=== PATIENT | female | born 1985 | race Two or more races ===

== ENCOUNTER 2016-05-31 19:03 | Emergency (ER) | payer OTHER ==
[~2016-05-31] VITALS: Ht 157.5 cm; Wt 83.9 kg
[2016-05-31] MEDS ORDERED: NKM (19:11)
--- NOTE | 2016-05-31 19:22 | Emergency Room Report ---
History of Present Illness General Chief Complaint: Lower Back Pain or Injury Source: Patient Present Illness HPI 30-year-old female presents emergency department complaining of right-sided low back pain that radiates down into the right hip and posterior thigh times one day. Patient rates her pain as 9 out of 10 in severity, with occasional exacerbation up on forward flexion to 10 on a 10 in severity. pt describes "tightness" of the lower back muscle with "electrical" pains with certain movements and positions. Pt states the pain shoots down into the posterior right thigh. She denies previous injury, recent spinal procedures or midline Spinal tenderness, or incontinence. 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 Patient states that she was assisting someone that was quite large and weighed approximately 300 pounds. Patient denies nausea, vomiting, fevers, chills. denies neck pain. She denies . Denies numbness tingling or loss of sensation or gross motor movements of the extremities, incontinence of bowel or bladder. Denies CP, Palpitations, LOC, AMS, dizziness, Changes in Vision, Sensation, paresthesias, or a sudden severe headache. Allergies: Coded Allergies: No Known Allergies (Unverified , 05/31/16) Patient History Past Medical History: see triage record Past Surgical History: none Pertinent Family History: none Last Menstrual Period: Currently on her period Now: No : 3 Para: 3 Immunizations: UTD Reviewed Nursing Documentation: PMH: Agreed, PSxH: Agreed Nursing Documentation-PMH Hx Hypertension: Yes Review of Systems All Other Systems: negative except mentioned in HPI Physical Exam Vital Signs Date Time Temp Pulse Resp B/P Pulse Ox O2 Delivery O2 Flow Rate FiO2 05/31/16 19:06 98.2 78 16 139/83 100 Room Air Medical Decision Making PA Attestation Dr. Davies is my supervising Physician whom patient management has been discussed with. Diagnostic Impression: Primary Impression: Lumbar strain Qualified Codes: S39.012A - Strain of muscle, fascia and tendon of lower back , initial encounter Additional Impression: Muscle spasm of back ER Course Pt. presents to the ED c/o right low back pain described as "soreness, and tightness" that on occasion radiates down into the right hip and posterior right thigh. onset after attempting to assist 300lb person transfer from wheel chair into shower today at work. Ddx considered but are not limited to Fracture, dislocation, contusion, Sprain/ Strain/Spasm Vital signs: are WNL, pt. is afebrile H&PE are most consistent with lumbar strain, with muscle spasm and intermittent sciatica type radiation of the right side. ORDERS: none required at this time. ED INTERVENTIONS: -40mg Toradol IM -350mg Soma PO DISCHARGE: At this time pt. is stable for d/c to home. Will provide printed patient care instructions, and any necessary prescriptions. Care plan and follow up instructions have been discussed with the patient prior to discharge. Last Vital Signs Date Time Temp Pulse Resp B/P Pulse Ox O2 Delivery O2 Flow Rate FiO2 05/31/16 19:06 98.2 78 16 139/83 100 Room Air Disposition: HOME, SELF-CARE Condition: Stable Scripts Ibuprofen* (MOTRIN*) 600 Mg Tablet 600 MG ORAL THREE TIMES A DAY, #30 TAB 0 Refills Prov: Dorita Chaidez 05/31/16 Cyclobenzaprine Hcl* (FLEXERIL*) 10 Mg Tablet 10 MG ORAL THREE TIMES A DAY, #20 TAB Prov: Dorita Chaidez 05/31/16 Departure Forms: Return to Work Return to Work Date: Jun 02, 2016 Work Restrictions: No Heavy Lifting Other Restrictions: light duty, no heavy lifting x 1 week. Return to Full Activity: Jun 09, 2016 Patient Instructions: Lumbosacral Strain Additional Instructions: Take medications as directed. Follow up with PCP in 3-5 days Return sooner to ED if new symptoms occur, or current symptoms become worse. Do not drink alcohol, drive, or operate heavy machinery while taking Muscle relaxer as this may cause drowsiness. Dorita Chaidez May 31, 2016 19:22
[2016-05-31] MEDS ORDERED: Ketorolac 60mg Inj IM ONE (19:45)
[2016-05-31] MEDS ORDERED: CYCLOBENZAPRINE10 MG ORAL (19:53)
[2016-05-31] MEDS ORDERED: IBUPROFEN600 MG ORAL (19:53)
[2016-05-31 20:36] VITALS: BP 121/79
[2016-05-31 20:38] VITALS: BP 121/79
== END 2016-05-31 20:38 | disposition home or self-care (01) ==
LOC: EMR 19:21
DX: S39.012A Strain of muscle, fascia and tendon of lower back, initial encounter (principal); M62.830 Muscle spasm of back; I10 Essential (primary) hypertension
CPT/HCPCS: 96372; 99284

== ENCOUNTER 2018-07-20 18:46 | Emergency (ER) | payer MEDICARE, MEDICAID ==
[~2018-07-20] VITALS: Ht 157.5 cm; Wt 61.2 kg
[~2018-07-20 18:46] MED LIST: CYCLOBENZAPRINE10 MG ORAL; IBUPROFEN600 MG ORAL; NKM
[2018-07-20 19:00] VITALS: BP 181/112
[2018-07-20] MEDS ORDERED: Metoclopramide 10mg/2ml Inj IVP ONE (19:15)
[2018-07-20] MEDS ORDERED: Acetaminophen 500mg (ES) tab ORAL ONE (19:30)
--- NOTE | 2018-07-20 19:36 | Emergency Room Report ---
History of Present Illness General Chief Complaint: Headache Source: Patient, EMS Present Illness HPI She is a 32-year-old female presented after increased headache. Patient reports having similar symptoms in the past after dialysis. Patient had multiple previous episodes of similar symptoms. She denies any previous CT imaging. Patient states she had prior history of end-stage renal disease. She was undergoing dialysis today. Patient denies any fever. She denies any neck stiffness. Allergies: Coded Allergies: No Known Allergies (Unverified , 05/31/16) Patient History Past Medical History: see triage record Last Menstrual Period: 10 days ago Now: No Reviewed Nursing Documentation: PMH: Agreed; PSxH: Agreed Nursing Documentation-PMH Past Medical History: No History, Except For Hx Hypertension: Yes Hx Dialysis: Yes Review of Systems All Other Systems: negative except mentioned in HPI Physical Exam Vital Signs Date Time Temp Pulse Resp B/P (MAP) Pulse Ox O2 Delivery O2 Flow Rate FiO2 07/20/18 18:37 99.0 100 20 181/112 98 Room Air General Appearance: alert, non-toxic, thin, Chronically Ill Neck: full range of motion, supple, thyroid normal, no meningismus Respiratory: lungs clear, normal breath sounds Cardiovascular #1: normal inspection, regular rate, rhythm Gastrointestinal: normal inspection Musculoskeletal: normal inspection Neurologic: normal inspection, alert, oriented x3, responsive, pv design and installation technician III-XII nml as tested Skin: other - edema Medical Decision Making Diagnostic Impression: Primary Impression: Headache ER Course Present for headache. Differential diagnosis include was not limited to anemia , migraine, meningitis, intracranial hemorrhage among others. Patient denies prior CT imaging. Patient was given medications for headache. Patient refused laboratory workup. Patient was advised that we would not be unable to tell if she required a transfusion without blood test but she continued to refuse. Patient was advised to follow-up with her primary care physician for recheck. Patient was noted to have some prior history of headaches associated with dialysis. The patient is advised to follow up with primary care doctor in 1-2 days. Patient is advised to return if any worsening condition or if any changes in status that are concerning. This report is dictated with [employer] passenger brakeman software which may occasionally lead to discrepancies related to use of this software. Last Vital Signs Date Time Temp Pulse Resp B/P (MAP) Pulse Ox O2 Delivery O2 Flow Rate FiO2 07/20/18 18:37 99.0 100 20 181/112 98 Room Air Status: improved Disposition: HOME, SELF-CARE Condition: Unknown David Medrano MD Jul 20, 2018 19:36
[2018-07-20] MEDS ORDERED: Norco 5mg/325mg tab ORAL ONE (20:45)
[2018-07-20 21:04] VITALS: BP 162/97
[2018-07-20 22:40] VITALS: BP 140/78
--- NOTE | 2018-07-21 09:08 | Diagnostic Imaging Report ---
Indications: Headache, dizziness Technique: Spiral acquisitions obtained through the brain. Angled axial and coronal 5 x 5 mm slices were reconstructed. Total dose length product 1326.65 mGycm. CTDI vol(s) 70.38 mGy. Dose reduction achieved using automated exposure control Comparison: None. Findings: No acute intracranial hemorrhage or edema, mass effect, nor midline shift. Normal size ventricles and extra axial CSF spaces. Normal paulino-white differentiation. Intact calvarium. There is a left maxillary sinus polyp versus mucous retention cyst, incompletely visualized. The remaining visualized sinuses are clear. The mastoids are clear. The orbits are unremarkable. Impression: Negative for acute intracranial bleed or mass effect Left maxillary sinus polyp versus mucous retention cyst This agrees with the preliminary interpretation provided overnight by Dr. Garcia The CT scanner at [facility] is accredited by the [employer] and the scans are performed using protocols designed to limit radiation exposure to as low as reasonably achievable to attain images of sufficient resolution adequate for diagnostic evaluation.
== END 2018-07-20 22:40 | disposition home or self-care (01) ==
LOC: EDBD 18:46 → EMR 19:21
DX: R51 Headache (principal); I12.0 Hypertensive chronic kidney disease with stage 5 chronic kidney disease or end stage renal disease; N18.6 End stage renal disease; Z99.2 Dependence on renal dialysis
CPT/HCPCS: 70450; 99284

== ENCOUNTER 2019-08-02 15:12 | Emergency (ER) | payer MEDICARE, MEDICAID ==
[~2019-08-02] VITALS: Ht 157.5 cm; Wt 63.5 kg
[2019-08-02 15:17] VITALS: BP 132/63
--- NOTE | 2019-08-02 15:25 | NUR ---
ED Nurse Note: patient brought into ED from home due to sudden pain on the right upper shunt area 30 minutes prior to arrival to ED. patient reports it was placed 2 weeks ago at [facility] by vascular surgeon DR Alfa Marmolejo. per EMS patient's last dialysis was yesterday. patient is alert awake x4 ambulatory, breathing unlabored and even, speaking in full sentences. patient placed on a hospital gown, on a slabber light.
[2019-08-02] MEDS ORDERED: Morphine Sulfate 4mg/ml Inj (IV USE ONLY) IVP ONE (15:45)
[2019-08-02 16:10] LABS: BASOPHILS % (AUTO) 1.3 % (0.0-2.0); EOSINOPHILS % (AUTO) 2.2 % (0.0-3.0); HEMATOCRIT 32.2 % (37.0-47.0); HEMOGLOBIN 10.8 G/DL (12.0-16.0); LYMPHOCYTES % (AUTO) 28.5 % (20.0-45.0); MEAN CORPUSCULAR VOLUME 99 FL (80-99); MONOCYTES % (AUTO) 5.4 % (1.0-10.0); NEUTROPHILS % (AUTO) 62.7 % (45.0-75.0); PLATELET COUNT 194 K/UL (150-450); RED BLOOD COUNT 3.27 M/UL (4.20-5.40); RED CELL DISTRIBUTION WIDTH 12.9 % (11.6-14.8); WHITE BLOOD COUNT 5.6 K/UL (4.8-10.8)
[2019-08-02 16:11] LABS: ALANINE AMINOTRANSFERASE 13 U/L (12-78); ALBUMIN 3.8 G/DL (3.4-5.0); ALBUMIN/GLOBULIN RATIO 0.9 (1.0-2.7); ALKALINE PHOSPHATASE 101 U/L (46-116); ANION GAP 15 mmol/L (5-15); ASPARTATE AMINO TRANSFERASE 26 U/L (15-37); BILIRUBIN,TOTAL 0.3 MG/DL (0.2-1.0); BLOOD UREA NITROGEN 64 mg/dL (7-18); CALCIUM 8.4 MG/DL (8.5-10.1); CARBON DIOXIDE 26 MMOL/L (21-32); CHLORIDE 107 MMOL/L (98-107); CREATININE 10.9 MG/DL (0.55-1.30); SODIUM 148 MMOL/L (136-145)
[2019-08-02] MEDS ORDERED: HYDROcodone/Acetamin 5/325 tab ORAL ONE (16:15)
[2019-08-02] MEDS: Sodium Polystyrene Sulfonate Enema RECTAL ONE ×2 (18:23→18:30)
[2019-08-02] MEDS ORDERED: Sodium Polystyrene Sulfonate 15gm Powder ORAL ONE ×2 (18:30)
[2019-08-02] MEDS ORDERED: CATAPRES0.1 MG ORAL (18:31)
[2019-08-02] MEDS ORDERED: AMLODIPINE BESYL5 MG ORAL (18:31)
--- NOTE | 2019-08-02 18:36 | Diagnostic Imaging Report ---
Indication: Right upper extremity pain and swelling. Technique: Duplex Doppler imaging of the veins in the upper extremity performed. FINDINGS: The jugular and subclavian veins demonstrate normal color flow and waveform signal. There is a widely patent right upper extremity arteriovenous graft. The venous end of the graft is unnamed. The axillary, cephalic and basilic vein appears normal compressibility. No evidence of thrombosis. There is no evidence of thrombosis with good compressibility, normal color flow and waveform analysis. There is edema in the arm. Some fluid noted surrounding the arteriovenous shunt. IMPRESSION: No evidence of thrombosis involving the upper extremity in question. Patent arteriovenous graft
--- NOTE | 2019-08-02 18:45 | NUR ---
ED Nurse Note: patient tolerated kayexalate as ordered without complication.
--- NOTE | 2019-08-02 18:52 | NUR ---
ER DISCHARGE NOTE: Patient is cleared to be discharged per ERMD DR LOU, pt is aox4, on room air, with stable vital signs. pt was given dc and prescription instructions, pt was able to verbalize understanding, pt id band and iv site removed without complications. pt is able to ambulate with steady gait. pt took all belongings.
[2019-08-02 18:53] VITALS: BP 128/62
--- NOTE | 2019-08-02 19:09 | Emergency Room Report ---
History of Present Illness General Chief Complaint: Pain Source: Medical Record Present Illness HPI 33-year-old female presents to ED complaining of right arm pain and swelling. Brought in by EMS from home. States that she had a AV graft placed in the right upper extremity 2 weeks ago at [facility]. States that suddenly today it got very swollen and painful. 10 out of 10, sharp, nonradiating. Denies shortness of breath. History of end-stage renal disease on dialysis. Normally goes Thursday. Denies fevers or chills. Missed Thursday dialysis and went yesterday. No other aggravating relieving factors. Denies any other associated symptoms COVID-19 risk:Travel to affect: No Allergies: Coded Allergies: No Known Allergies (Unverified , 05/31/16) Patient History Past Medical History: renal disease, dialysis Past Surgical History: other - av graft RUE 2 weeks ago Pertinent Family History: none Social History: Denies: smoking, alcohol use, drug use Last Menstrual Period: one month ago Now: No Immunizations: UTD Reviewed Nursing Documentation: PMH: Agreed; PSxH: Agreed Nursing Documentation-PMH Past Medical History: No History, Except For Hx Hypertension: Yes Hx Dialysis: Yes - ESRD Review of Systems All Other Systems: negative except mentioned in HPI Physical Exam Vital Signs Date Time Temp Pulse Resp B/P (MAP) Pulse Ox O2 Delivery O2 Flow Rate FiO2 08/02/19 15:17 99.0 86 18 132/63 99 Room Air Sp02 EP Interpretation: reviewed, normal General Appearance: no apparent distress, alert, GCS 15, non-toxic Head: normocephalic, atraumatic Eyes: bilateral eye normal inspection, bilateral eye PERRL ENT: hearing grossly normal, normal pharynx, no angioedema, normal voice Neck: full range of motion, supple/symm/no masses Respiratory: chest non-tender, lungs clear, normal breath sounds, speaking full sentences, other - permacath L upper chest Cardiovascular #1: regular rate, rhythm, no edema Cardiovascular #2: 2+ carotid (R), 2+ carotid (L), 2+ radial (R), 2+ radial (L) , 2+ dorsalis pedis (R), 2+ dorsalis pedis (L) Gastrointestinal: normal bowel sounds, non tender, soft, non-distended, no guarding, no rebound Rectal: deferred Genitourinary: normal inspection, no CVA tenderness Musculoskeletal: back normal, normal range of motion, gait/station normal, non- tender, swelling - RUE. stitches intact. no erythema/induration Neurologic: alert, motor strength/tone normal, oriented x3, sensory intact, responsive, speech normal Psychiatric: judgement/insight normal, memory normal, mood/affect normal, no suicidal/homicidal ideation Reflexes: 3+ bicep (R), 3+ bicep (L), 3+ tricep (R), 3+ tricep (L), 3+ knee (R) , 3+ knee (L) Lymphatic: no adenopathy Medical Decision Making Diagnostic Impression: Primary Impression: Swelling of upper extremity Additional Impression: ESRD (end stage renal disease) on dialysis ER Course Hospital Course 33 yo F presents with pain/swelling RUE. s/p recent AV graft surgery. Differential diagnoses include: DVT, cellulitis, contusion, abscess Clinical course Patient placed on stretcher after initial history and physical I ordered labs, EKG, pain medication and DVT ultrasound. Labs reviewed- K 6.0, BUN/Cr elevated, hemoglobin/hematocrit stable, no leukocytosis Doppler ultrasound shows no evidence of DVT. fluid around AV shunt EKG - NSR, no acute ischemic changes interpreted by me I discussed with vascular surgeon Dr. Alfa Bañuelos. Agrees this could be likely a seroma. No evidence of DVT or infection. He agrees that patient can be discharged. He will follow-up with her in his office I discussed with Dr Forbes (nephrology). Knows this patient very well. Agrees that patient can be discharged. Will give Kayexalate here and he will see in his office tomorrow for dialysis in the morning I discussed these findings with patient. She agrees with plan. Safe for discharge for close outpatient follow-up I. I feel this is a highly complex case requiring extensive working including EKG/Rhythm strip, Xray/CT/US, Blood/urine lab work, repeat exams while in ED, and administration of strong opiates/narcotics for pain control, admission to hospital or close patient follow up. Diagnosis - swelling of upper extremity, ESRD on dialysis Stable and discharged to home. Followup with PMD. Return to ED if symptoms recur or worsen Labs Test 08/02/19 15:20 08/02/19 15:59 White Blood Count 5.6 K/UL (4.8-10.8) Red Blood Count 3.27 M/UL (4.20-5.40) Hemoglobin 10.8 G/DL (12.0-16.0) Hematocrit 32.2 % (37.0-47.0) Mean Corpuscular Volume 99 FL (80-99) Mean Corpuscular Hemoglobin 33.0 PG (27.0-31.0) Mean Corpuscular Hemoglobin Concent 33.5 G/DL (32.0-36.0) Red Cell Distribution Width 12.9 % (11.6-14.8) Platelet Count 194 K/UL (150-450) Mean Platelet Volume 6.5 FL (6.5-10.1) Neutrophils (%) (Auto) 62.7 % (45.0-75.0) Lymphocytes (%) (Auto) 28.5 % (20.0-45.0) Monocytes (%) (Auto) 5.4 % (1.0-10.0) Eosinophils (%) (Auto) 2.2 % (0.0-3.0) Basophils (%) (Auto) 1.3 % (0.0-2.0) Prothrombin Time 10.2 SEC (9.30-11.50) Prothromb Time International Ratio 1.0 (0.9-1.1) Activated Partial Thromboplast Time 24 SEC (23-33) Sodium Level 148 MMOL/L (136-145) Potassium Level 6.0 MMOL/L (3.5-5.1) Chloride Level 107 MMOL/L (98-107) Carbon Dioxide Level 26 MMOL/L (21-32) Anion Gap 15 mmol/L (5-15) Blood Urea Nitrogen 64 mg/dL (7-18) Creatinine 10.9 MG/DL (0.55-1.30) Estimat Glomerular Filtration Rate 4.1 mL/min (>60) Glucose Level 94 MG/DL (74-106) Calcium Level 8.4 MG/DL (8.5-10.1) Total Bilirubin 0.3 MG/DL (0.2-1.0) Aspartate Amino Transf (AST/SGOT) 26 U/L (15-37) Alanine Aminotransferase (ALT/SGPT) 13 U/L (12-78) Alkaline Phosphatase 101 U/L (46-116) Total Protein 7.8 G/DL (6.4-8.2) Albumin 3.8 G/DL (3.4-5.0) Globulin 4.0 g/dL Albumin/Globulin Ratio 0.9 (1.0-2.7) Human Chorionic Gonadotropin, Qual Negative (NEGATIVE) Lactic Acid Level 0.60 mmol/L (0.4-2.0) EKG Diagnostic Results Rate: normal Rhythm: NSR ST Segments: no acute changes ASA given to the pt in ED: No Rhythm Strip Diag. Results EP Interpretation: yes Rhythm: NSR, no PVC's, no ectopy CT/MRI/US Diagnostic Results CT/MRI/US Diagnostic Results : Imaging Test Ordered: Venous Duplex Impression US VENOUS RIGHT UPPER EXTREMITY: No DVT in the right upper extremity. Patent AV shunt in the right upper arm. There is some edema in the right upper arm. There is some fluid in the upper arm surrounding the AV shunt. Last Vital Signs Date Time Temp Pulse Resp B/P (MAP) Pulse Ox O2 Delivery O2 Flow Rate FiO2 08/02/19 18:53 99.0 72 18 128/62 99 Room Air Status: improved Disposition: HOME, SELF-CARE Condition: Stable Referrals: NOT CHOSEN IPA/,REFERRING (PCP) Patient Instructions: Dialysis Vascular Access Malfunction Additional Instructions: followup with Dr Forbes's office tomorrow at 8am for dialysis. followup with your vascular surgeon next week regarding the swelling. Charbel Edwards MD Aug 02, 2019 19:08
== END 2019-08-02 18:52 | disposition home or self-care (01) ==
LOC: EDUNIT# 15:12 → EDBD 15:12 → EMR 16:10 → CANBEDREQ 18:24 → EMR 18:52
DX: R22.31 Localized swelling, mass and lump, right upper limb (principal); I12.0 Hypertensive chronic kidney disease with stage 5 chronic kidney disease or end stage renal disease; N18.6 End stage renal disease; Z99.2 Dependence on renal dialysis
CPT/HCPCS: 80053; 83605; 84703; 85025; 85610; 85730; 87040; 93005; 93931; 99284

== ENCOUNTER 2019-08-05 22:26 | Inpatient (IN) | payer MEDICARE, MEDICAID ==
[~2019-08-05] VITALS: Ht 157.5 cm; Wt 66.7 kg
[~2019-08-05 22:26] MED LIST changes: +AMLODIPINE BESYL5 MG ORAL; +CATAPRES0.1 MG ORAL
[2019-08-05] MEDS ORDERED: HYDROmorphone 1mg/ml Carpuject IVP ONE ×2 (22:30→23:00)
[2019-08-05 22:42] LABS: BASOPHILS % (AUTO) 1.4 % (0.0-2.0); EOSINOPHILS % (AUTO) 1.8 % (0.0-3.0); HEMOGLOBIN 8.5 G/DL (12.0-16.0); LYMPHOCYTES % (AUTO) 41.3 % (20.0-45.0); MEAN CORPUSCULAR VOLUME 101 FL (80-99); NEUTROPHILS % (AUTO) 49.5 % (45.0-75.0); PLATELET COUNT 273 K/UL (150-450); RED BLOOD COUNT 2.57 M/UL (4.20-5.40); RED CELL DISTRIBUTION WIDTH 13.8 % (11.6-14.8); WHITE BLOOD COUNT 8.4 K/UL (4.8-10.8)
--- NOTE | 2019-08-05 22:45 | NUR ---
ED Nurse Note: Recieved pt BIBA from home, here with c/o right arm pain and swelling, pt has newly placed av shunt, placed 1 week ago, seen here 4 days ago for same reason, f/u with vascular surgeon and was told no problems, pt had dialysis today and after returning home had increased pain with swelling, pt arm is severely swollen, mild bleeding, has pressure dressing in place, removed and no active bleeding noted, sutures are in place, clean and intact, pt is screaming and crying due to pain, pain at 10/120, guarding site also, pt skin color is verypale and cool to touch, pt states she passed out in dialysis, denies cp, no sob or labored breathing, pt just screaming very loud due to pain, pt immediately gowned and placed on cardiac monitoring, b/p is low, MD is aware and at bedside also, will continue to closely montior, pt arm elevated on pilows also.
--- NOTE | 2019-08-05 22:49 | Emergency Room Report ---
History of Present Illness General Chief Complaint: General Complaint Source: Patient, Medical Record, EMS Present Illness HPI Disclaimer: Please note that this report is being documented using DRAGON technology. This can lead to erroneous entry secondary to incorrect interpretation by the dictating instrument. HPI: 33-year-old female with history of ESRD on hemodialysis TRS presents for evaluation of AV fistula bleed and arm pain and swelling. Patient states she had a new AV fistula placed in the right upper extremity at [facility] several weeks ago. She was seen in the emergency department last week complaining of pain and swelling. Ultrasound did not show any evidence of DVT, abscess or other significant pathology aside from a seroma. She has been going to extra hemodialysis session due to recent volume overload. She went to dialysis today and yesterday. States that she was resting at home and had sudden pain and swelling in the right upper extremity. Pain is 10/10. Nonradiating. Denies overlying skin breakdown. States there was a short episode of oozing that was controlled by pressure. No current bleeding noted. Can move the upper extremity though limited due to severe pain. Denies pain in the hand or wrist or elbow. No trauma reported. PMH: ESRD PSH: Multiple fistulas and replacements Allergies: Denies Social Hx: Denies drug or alcohol abuse COVID-19 risk:Contact w/high r: No COVID-19 risk:Travel to affect: No Has patient experienced vallejo: No Allergies: Coded Allergies: No Known Allergies (Unverified , 05/31/16) Patient History Last Menstrual Period: NA Now: No Nursing Documentation-PMH Past Medical History: No History, Except For Hx Hypertension: Yes Hx Dialysis: Yes - ESRD Review of Systems All Other Systems: negative except mentioned in HPI Physical Exam Vital Signs Date Time Temp Pulse Resp B/P (MAP) Pulse Ox O2 Delivery O2 Flow Rate FiO2 08/05/19 22:25 98.4 114 18 90/65 (73) 98 Non-Rebreather 15.0 General: Awake and alert, uncomfortable, screaming in pain HEENT: NC/AT. EOMI. Cardiovascular: Tachycardic S1 and S2 normal. No murmur appreciated. 2+ radial pulses. Brisk capillary refill in all digits on the right upper extremity. Resp: Normal work of breathing. No cough, wheezing or crackles appreciated Skin: Significant ecchymosis over the surgical scar on the right upper extremity. No dehiscence. Appears to be healing well. There is an area of scabbing from recent bleed that is currently hemostatic. No masses appreciated. MSK: Normal tone and bulk. Moving all extremities. No obvious deformity. Neuro: Awake and alert. Mentating appropriately. Medical Decision Making Diagnostic Impression: Primary Impression: ESRD (end stage renal disease) on dialysis Additional Impressions: Anemia Syncope ER Course 33-year female presents for evaluation of minor fistula bleed complaining of right arm pain and swelling. Differential includes was not limited to worsening seroma, abscess, thrombosis, cellulitis. Will obtain labs to evaluate potassium and blood counts. Send type and screen for possible transfusion though it does not sound like the patient lost a significant amount of blood to warrant a transfusion. She is pale and appears fatigued. Will obtain imaging of the right upper extremity and discuss with her vascular surgeon. Laboratory Tests Test 08/05/19 22:30 White Blood Count 8.4 K/UL (4.8-10.8) Red Blood Count 2.57 M/UL (4.20-5.40) L Hemoglobin 8.5 G/DL (12.0-16.0) L Hematocrit 26.0 % (37.0-47.0) L Mean Corpuscular Volume 101 FL (80-99) H Mean Corpuscular Hemoglobin 32.9 PG (27.0-31.0) H Mean Corpuscular Hemoglobin Concent 32.5 G/DL (32.0-36.0) Red Cell Distribution Width 13.8 % (11.6-14.8) Platelet Count 273 K/UL (150-450) Mean Platelet Volume 6.7 FL (6.5-10.1) Neutrophils (%) (Auto) 49.5 % (45.0-75.0) Lymphocytes (%) (Auto) 41.3 % (20.0-45.0) Monocytes (%) (Auto) 6.0 % (1.0-10.0) Eosinophils (%) (Auto) 1.8 % (0.0-3.0) Basophils (%) (Auto) 1.4 % (0.0-2.0) Prothrombin Time 10.2 SEC (9.30-11.50) Prothrombin Time INR 1.0 (0.9-1.1) Activated Partial Thromboplast Time 21 SEC (23-33) L Sodium Level 144 MMOL/L (136-145) Potassium Level 3.0 MMOL/L (3.5-5.1) L Chloride Level 101 MMOL/L (98-107) Carbon Dioxide Level 27 MMOL/L (21-32) Anion Gap 16 mmol/L (5-15) H Blood Urea Nitrogen 14 mg/dL (7-18) Creatinine 3.8 MG/DL (0.55-1.30) H Estimated Glomerular Filtration Rate 13.7 mL/min (>60) Glucose Level 187 MG/DL (74-106) H Calcium Level 9.0 MG/DL (8.5-10.1) EKG Diagnostic Results EKG Time: 01:17 Rate: normal Rhythm: NSR ST Segments: no acute changes Other Impression Sinus rhythm, normal axis, normal intervals, flattened T waves. Nonspecific T wave inversions. Rhythm Strip Diag. Results Rhythm Strip Time: 01:17 EP Interpretation: yes Rate: 101 Rhythm: NSR, no PVC's, no ectopy CT/MRI/US Diagnostic Results CT/MRI/US Diagnostic Results : Impression Final Report EXAM: CT Right Upper Extremity With Intravenous Contrast CLINICAL HISTORY: PAIN TECHNIQUE: Axial computed tomography images of the right upper extremity with intravenous contrast. CTDI is 90.90 mGy and DLP is 146.8 mGy-cm. One or more of the following dose reduction techniques were used: automated exposure control, adjustment of the mA and/or kV according to patient size, use of iterative reconstruction technique. 3D and MIP reconstructed images were created and reviewed. COMPARISON: US RUE 08/02/19 FINDINGS: Bones/joints: No acute abnormality. Soft tissues: Subcutaneous edema is present in the right axilla. High density fluid surrounding the inferior aspect of the graft is concerning for a hematoma and measures approximately 5.6 cm. A 3 mm focus of irregular nodular enhancement adjacent to this collection may represent active hemorrhage (series 10, image 123). Vasculature: Patent right upper extremity AV graft. Nonocclusive thrombus is present in the right axillary vein near the anastomosis. IMPRESSION: 1. Patent right upper extremity AV graft. 5.6 cm hematoma surrounding the distal graft with suspected active hemorrhage, as above. 2. Nonocclusive thrombus in the right axillary vein near the anastomosis. Radiologist: Nina Strange MD Electronically Signed: 08/06/19 00:35 Study ready at 00:15 and initial results transmitted at 00:35 Reevaluation Time: 01:08 Last Vital Signs Date Time Temp Pulse Resp B/P (MAP) Pulse Ox O2 Delivery O2 Flow Rate FiO2 08/05/19 22:25 98.4 114 18 90/65 (73) 98 Non-Rebreather 15.0 Reevaluation Impression Labs show drop in hemoglobin from 10.8-8.5 from her last visit on 08/01. CT report shows a patent right upper extremity AV graft to though there is a 5.6 cm hematoma surrounding the distal graft. Radiology interpretation said there was a suspicion for active hemorrhage however the images were reviewed by the patient's vascular surgeon, Dr. Bañuelos, from [facility]. He does not believe it is actively extravasating and recommending compression bandage. He states he can see her in the office early next week. There is also a nonocclusive thrombus in the right axillary vein near the anastomosis. He does not believe this is an acute issue. He states there is no emergent need for vascular surgery at this point. Patient states that she still feels weak though pain is improved. Blood pressures improved after receiving a small IV fluid bolus. She now adds that she syncopized today while receiving hemodialysis. Given her drop in hemoglobin and her syncope today will admit for symptomatic anemia. Will order blood transfusion. Disposition: ADMITTED INPATIENT Condition: Serious Referrals: NOT CHOSEN JOSIAS/,REFERRING (PCP) Siddhartha De Los Santos MD Aug 05, 2019 22:49
[2019-08-05 23:00] VITALS: BP 99/58
[2019-08-05 23:01] LABS: ANION GAP 16 mmol/L (5-15); BLOOD UREA NITROGEN 14 mg/dL (7-18); CARBON DIOXIDE 27 MMOL/L (21-32); CHLORIDE 101 MMOL/L (98-107); CREATININE 3.8 MG/DL (0.55-1.30); SODIUM 144 MMOL/L (136-145)
[2019-08-06] VITALS (7 sets, daily range): BP systolic 125–140; BP diastolic 64–83
--- NOTE | 2019-08-06 | NUR ---
ED Nurse Note: Pt continues to rest in bed, pain relieved after second dose of pain meds, at bedside, on cardiac monitoring, b/p wnl now, no cp, no sob, pt assisted with re-positioning and arm elevated on pillow, will continue to closely monitor while waiting for results of CTA.
--- NOTE | 2019-08-06 00:36 | Diagnostic Imaging Report ---
EXAM: CT Right Upper Extremity With Intravenous Contrast CLINICAL HISTORY: PAIN TECHNIQUE: Axial computed tomography images of the right upper extremity with intravenous contrast. CTDI is 90.90 mGy and DLP is 146.8 mGy-cm. One or more of the following dose reduction techniques were used: automated exposure control, adjustment of the mA and/or kV according to patient size, use of iterative reconstruction technique. 3D and MIP reconstructed images were created and reviewed. COMPARISON: US RUE 08/02/19 FINDINGS: Bones/joints: No acute abnormality. Soft tissues: Subcutaneous edema is present in the right axilla. High density fluid surrounding the inferior aspect of the graft is concerning for a hematoma and measures approximately 5.6 cm. A 3 mm focus of irregular nodular enhancement adjacent to this collection may represent active hemorrhage (series 10, image 123). Vasculature: Patent right upper extremity AV graft. Nonocclusive thrombus is present in the right axillary vein near the anastomosis. IMPRESSION: 1. Patent right upper extremity AV graft. 5.6 cm hematoma surrounding the distal graft with suspected active hemorrhage, as above. 2. Nonocclusive thrombus in the right axillary vein near the anastomosis. <MYCVCSECTION> Communications: 08/06/19 00:45 Verify Receipt Verified receipt with VALORIE Poe, report given to Dr De Los Santos on 08/05 00:44 (-07:00)
[2019-08-06] MEDS ORDERED: Morphine Sulfate 4mg/ml Inj (IV USE ONLY) IVP PRN (01:30)
[2019-08-06] MEDS ORDERED: Morphine Sulfate 2mg/ml Inj(IV/IM USE ONLY) IVP PRN (01:30)
[2019-08-06] MEDS ORDERED: HYDROmorphone 1mg/ml Carpuject SUBQ PRN (01:30)
[2019-08-06] MEDS ORDERED: HYDROmorphone 1mg/ml Carpuject IVP ONE (01:45)
--- NOTE | 2019-08-06 02:00 | NUR ---
ED Nurse Note: Pt continues to rest in bed, sleeping but when awakened for anything pt immediately starts asking for pain meds, pt repositioned with pillows, appears sedated, eyes red and low, but constantly asking for morphine, v/s stable, IV site patent, pt wants to stay in hospital, states does not feel comfortable going home, pt is to have blood transfusion, consent signed, belonging list completed, no cp, no sob, will continue to closely monitor and prepare for admission, clean drydressing applied to right arm with faheem bandage, no active bleeding noted at this time, no increase in swelling but pt thinks so. will continue to monitor and send to floor bed when available.
--- NOTE | 2019-08-06 03:05 | NUR ---
ED Nurse Note: Pt in bed awake and alert, sleeping intermittently, pt constantly asking for pain meds, pt appears to be sleeping and comfortable, when awakened pt begins to scream very loudly, yelling for pain meds, MD aware, pt medicated with dilaudid, meds effective but pt states not long enough time, pt also c/o swelling increasing and states its getting bigger, pt is very anxious and constantly screaming "i dont want to ", many attempts made to console pt with meds and comfort measures, repositioning with pillow support, will continue to closely monitor, pt has been discharged by but her and dont want to leave stating she needs more pain meds, pt to be admitted for pain control, will continue care while waiting for bed and blood for transfusion.
[2019-08-06] MEDS ORDERED: COREG12.5 MG ORAL (03:45)
[2019-08-06] MEDS ORDERED: RENA-VITE RX T1 EAC1 PO (03:45)
--- NOTE | 2019-08-06 04:15 | NUR ---
ED Nurse Note: Pt started with blood transfusion of PRBC, consent form signed, pt on cardiac monitoring, pt continues to c/o pain, yelling and crying, pt is being medicated often with dilaudid for pain, pt stating we need to give her 2mg doses all at the same time like Dev, is aware of pt request, sat with pt first 15 minutes of start of transfusion, no s/s of adverse reaction noted, tolerating well, via pump, IV site patent, report called to floor nurse, pt being taken tounit via gurney with ACLS protocols, with RN bob -Tech.
--- NOTE | 2019-08-06 05:05 | NUR ---
I received report from Judith Grossman RN. Patient arrived to me from ED to 209-2. Patient is receiving first unit of blood at this time. Patient states having pain, vital signs stable. I have paged Dr Escalera for admitting orders. Awaiting callback at this time.
--- NOTE | 2019-08-06 07:17 | NUR ---
Blood bank just called me that the second unit of blood is ready. to endorse to oncoming nurse.
--- NOTE | 2019-08-06 07:17 | NUR ---
Called Dr Escalera. Awaiting callback at this time.
--- NOTE | 2019-08-06 07:51 | NUR ---
Gave report to Jennifer Garcia RN. Endorsed that Dr Escalera will be calling and blood is ready in blood bank. Endorsed plan of care.
--- NOTE | 2019-08-06 07:52 | NUR ---
NURSE NOTES: Received report from TOMASA Whitfield. Patient is on bed, awake and oriented x 4. No acute signs and symptoms of distress noted at this time. Patient is on room air with no any signs of respiratory distress. Patient is on renal diet-instructed. She has an IV site on left AC G-20, asymptomatic and patent saline lock. Skin is intact. Safety measures in place, bed in lowest position. Bed alarm on, side rails up x 2, call light and bedside table within reach. Instructed to call for assistance.
--- NOTE | 2019-08-06 08:30 | NUR ---
NURSE NOTES: Called Dr. Chandra, got the order to start the 2ng unit PRBC. Explained to the patient about the transfusion, hung the 2nd unit PRBC @ 0830H, monitor for any untoward symptoms, vitals were stable, no complaints was made. Will continue to monitor.
[2019-08-06] MEDS: Morphine Sulfate 2mg/ml Inj(IV/IM USE ONLY) IVP PRN ×3 (09:24→21:48)
--- NOTE | 2019-08-06 10:33 | NUR ---
NURSE NOTES: Received call back from Dr. Bañuelos (Vascular surgeon) he spoke with Dr. Escalera. Per vascular surgeon Ct right arm result has been the same and surgeon aware of it and no intervention needed. Possible discharge in am. will follow
[2019-08-06] MEDS: Vitamin B Complex Tab ORAL SCH (11:05)
--- NOTE | 2019-08-06 11:15 | Consultation ---
DATE OF CONSULTATION: 08/06/2019 INTERNAL MEDICINE CONSULTATION/HISTORY AND PHYSICAL CONSULTING PHYSICIAN: Duncan Ryan M.D. HISTORY OF PRESENT ILLNESS: This is a 33-year-old female with history of ESRD, on dialysis. She had been to the hospital with AV fistula being from the right upper extremity. This is a new fistula that was placed several weeks ago at [facility]. She presented with oozing from the fistula site. She was seen and admitted to the hospital. Vascular Surgery has been consulted. PAST MEDICAL HISTORY: Notable for hypertension, ESRD. PAST SURGICAL HISTORY: Left upper fistula as well as right upper fistula. ALLERGIES: None. FAMILY HISTORY: None. REVIEW OF SYSTEMS: Denies any headaches, hematemesis, melena, hematemesis. PHYSICAL EXAMINATION: GENERAL: Reveals a young female. VITAL SIGNS: Blood pressure 130/90, heart rate 94, respirations , she is afebrile. HEENT: Unremarkable. LUNGS: Clear breath sounds bilaterally with normal heart sounds. ABDOMEN: Soft. EXTREMITIES: Right upper extremity has a pressure dressing. IMAGING STUDIES: Unremarkable. CT of the upper extremity shows right upper extremity AV graft with a 5 cm hematoma with surrounding hemorrhage. LABORATORY DATA: Lab testing shows hemoglobin 8.5. Chemistry is normal except for creatinine 3.8. Coags are negative. IMPRESSION: 1. Bleeding AV fistula. 2. Hypertension. 3. ESRD, on dialysis. DISCUSSION: Admit to the hospital. Vascular Surgery had been consulted. Nephrology is consulted. 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 Duncan Ryan M.D. DR: HAILEY JOB#: [id number] CC:
--- NOTE | 2019-08-06 11:29 | Consultation ---
DATE OF CONSULTATION: 08/06/2019 CONSULTING PHYSICIAN: Harjeet Escalera M.D. REFERRING PHYSICIAN: Rowdy Wall D.O. REASON FOR CONSULTATION: 1. Anemia. 2. End-stage renal disease. 3. Bleeding from AV fistula. HISTORY OF PRESENT ILLNESS: The patient is a 33-year-old female, who underwent hemodialysis yesterday. She states during her hemodialysis session, she did not feel well. Overnight, she felt her arm swelling in her AV fistula area. Then, presented to emergency room. She had her AV fistula placed at [facility] several weeks ago. Pain is 10/10 in her arm. The hand is a little slightly ____ per the patient. REVIEW OF SYSTEMS: NEUROLOGIC: The patient denies headache, change in vision, syncope, or presyncopal episodes. CARDIOVASCULAR: No current chest pain, palpitations, angina. PULMONARY: No difficulty breathing, productive cough, or sputum. GASTROINTESTINAL/GENITOURINARY: No changes in bowel habits. No nausea and vomiting. ENDOCRINOLOGY: No night sweats, fevers, or chills. MUSCULOSKELETAL: The patient is complaining of right upper extremity arm pain. PHYSICAL EXAMINATION: VITAL SIGNS: Blood pressure 134/95, respiratory rate 17, pulse 92, temperature 98.6. GENERAL: The patient is awake, alert, not in distress. HEENT: Extraocular muscles intact. No lymphadenopathy noted. CARDIOVASCULAR: S1, S2. No rubs or gallops. PULMONARY: Clear to auscultation bilaterally. No rales, rhonchi, or wheezes. ABDOMEN: Nondistended, nontender. EXTREMITIES: No edema with a right upper extremity noted Cheko bandage. LABORATORY DATA: Labs dated 08/05/2019, hemoglobin 8.5, white cell count 8.4, and platelet count 273,000. Sodium 144, potassium 3, BUN 14, creatinine 3.8. ASSESSMENT AND PLAN: 1. End-stage renal disease, on hemodialysis. The patient's electrolytes are currently stable and she did undergo hemodialysis yesterday. At this time, we will hold off hemodialysis until Thursday. The patient does have a tunneled hemodialysis catheter if need be. 2. Right upper extremity AV fistula graft bleed, noted to have a 5.6 cm hematoma surrounding the active hemorrhage. The patient has an Cheko bandage for compression. Dr. Dr. Alfa Serra, Vascular Surgery has been consulted by emergency room for further evaluation and management. 3. Hypertension. Adjust medications as deemed appropriate. 4. GI prophylaxis with Pepcid. 5. DVT prophylaxis with SCDs. Harjeet Escalera MD DR: CHACHO JOB#: [id number] CC:
--- NOTE | 2019-08-06 12:05 | NUR ---
NURSE NOTES: 2nd unit PRBC transfusion was done, no adverse reaction was noted. Vitals were stable, Will continue to monitor.
--- NOTE | 2019-08-06 19:21 | NUR ---
HAND-OFF: Report given to Sadia KELLY RN. Patient is on bed, in stable condition, plan of care endorsed.
--- NOTE | 2019-08-06 21:42 | NUR ---
Patient is running a fever of 100.2. I notified Dr Escalera. He ordered for Tylenol (see orders for details) and blood culture x1.
--- NOTE | 2019-08-06 23:40 | NUR ---
I have notified lab of the blood culture. They told me someone would be coming to draw it.
--- NOTE | 2019-08-06 23:41 | NUR ---
Tylenol was effective. Patient is now afebrile with a temp of 98.1.
[2019-08-07] VITALS: BP 108/60
[2019-08-07 04:00] VITALS: BP 139/75
[2019-08-07 07:11] LABS: BASOPHILS % (AUTO) 0.8 % (0.0-2.0); EOSINOPHILS % (AUTO) 1.7 % (0.0-3.0); HEMATOCRIT 25.6 % (37.0-47.0); HEMOGLOBIN 8.8 G/DL (12.0-16.0); LYMPHOCYTES % (AUTO) 15.9 % (20.0-45.0); MEAN CORPUSCULAR VOLUME 91 FL (80-99); MONOCYTES % (AUTO) 9.3 % (1.0-10.0); NEUTROPHILS % (AUTO) 72.3 % (45.0-75.0); PLATELET COUNT 217 K/UL (150-450); RED BLOOD COUNT 2.81 M/UL (4.20-5.40); RED CELL DISTRIBUTION WIDTH 15.6 % (11.6-14.8); WHITE BLOOD COUNT 10.7 K/UL (4.8-10.8)
--- NOTE | 2019-08-07 07:19 | NUR ---
NURSE NOTES: Received report from TOMASA Avila. Patient is on bed, awake and oriented x 4. Patient is on renal diet, instructed. On room air with no respiratory distress noted at this time. Patient has left chest perm. cath, left fistula that is not working, AV fistula on right arm with dressing on that is dry and intact. Patient has IV site on left forearm G-20 saline lock that is asymptomatic and intact. Safety measures are in placed. Call light and bed side table within reach, bed in lowest and locked position, side rails up x 2. Encouraged to call for any assistance.
[2019-08-07 08:00] VITALS: BP 142/85
[2019-08-07 08:11] LABS: ANION GAP 15 mmol/L (5-15); BLOOD UREA NITROGEN 33 mg/dL (7-18); CALCIUM 8.7 MG/DL (8.5-10.1); CARBON DIOXIDE 24 MMOL/L (21-32); CHLORIDE 100 MMOL/L (98-107); CREATININE 8.1 MG/DL (0.55-1.30); POTASSIUM 4.5 MMOL/L (3.5-5.1); SODIUM 139 MMOL/L (136-145)
[2019-08-07] MEDS: Vitamin B Complex Tab ORAL SCH (08:39)
--- NOTE | 2019-08-07 10:15 | History and Physical Report ---
DATE OF ADMISSION: 08/06/2019 DATE AND TIME SEEN: 08/07/2019, approximate time is 9 a.m. CONSULTANTS: Harjeet Escalera M.D. CHIEF COMPLAINT: Headache, swelling upper extremity, syncope, anemia, ESRD, right arm pain. BRIEF HISTORY: This is a 33-year-old female, who lives at home, recently had a graft on the right arm for her dialysis. She has excruciating pain and possible syncopal yesterday and came to [facility], diagnosed with the above, admitted to telemetry for further care. Currently, sitting on bed. Slightly anxious, no complaint. REVIEW OF SYSTEMS: Slight chest pain. Slight short of breath. No nausea, vomiting, or diarrhea. PAST MEDICAL HISTORY: Includes ESRD, hypertension, anemia. PAST SURGICAL HISTORY: Graft on the right arm, x3. MEDICATIONS: Include Pepcid, Tylenol, Catapres, Zofran, Norvasc, morphine. ALLERGIES: Denies. SOCIAL HISTORY: No smoking. No alcohol. No intravenous drug abuse. FAMILY HISTORY: Noncontributory. PHYSICAL EXAMINATION: GENERAL: Slightly anxious, sitting on bed, oriented x3, no acute distress. VITAL SIGNS: Temperature is 98 degrees, pulse 89, respirations 18, blood pressure 142/85. CARDIOVASCULAR: No murmurs. LUNGS: Distant and clear. ABDOMEN: Bowel sounds positive. Nontender and nondistended. EXTREMITIES: Show no cyanosis, clubbing, or edema. Graft clean and dry. NEUROLOGIC: The patient moves all extremities, slightly weak. LABORATORY AND DIAGNOSTIC DATA: Labs at this time show hemoglobin and hematocrit 8.8/25, otherwise CBC is normal. BMP show BUN and creatinine 33/8.1, otherwise BMP is normal. INR is 1.0, PTT 21. ASSESSMENT: 1. Possible syncopal. 2. Right arm pain. 3. Anemia. 4. ESRD. 5. Hypertension. PLAN: 1. Blood pressure and pain control. 2. Dietary followup. 3. Nephrology followup. 4. Dialysis p.r.n. 5. CBC and BMP in the morning. Rowdy Wall D.O. DR: ISIDRO JOB#: [id number] CC:
--- NOTE | 2019-08-07 10:41 | Pulmonology Progress Note ---
Assessment/Plan Assessment/Plan IMPRESSION: 1. Bleeding AV fistula. 2. Hypertension. 3. ESRD, on dialysis. DISCUSSION: Admit to the hospital. Vascular Surgery had been consulted. Nephrology is consulted. I will follow as reconciling clerk. Duncan Ryan M.D. Subjective Interval Events: None new Constitutional: Reports: no symptoms HEENT: Repors: no symptoms Respiratory: Reports: no symptoms Cardiovascular: Reports: no symptoms Gastrointestinal/Abdominal: Reports: no symptoms Allergies: Coded Allergies: No Known Allergies (Unverified , 05/31/16) Objective Last 24 Hour Vital Signs Date Time Temp Pulse Resp B/P (MAP) Pulse Ox O2 Delivery O2 Flow Rate FiO2 08/07/19 09:00 Room Air 08/07/19 08:46 89 142/85 08/07/19 08:00 98.8 90 18 142/85 (104) 100 08/07/19 08:00 83 08/07/19 04:00 98.4 97 18 139/75 (96) 99 08/07/19 04:00 100 08/07/19 00:00 98.4 97 18 108/60 (76) 99 08/07/19 00:00 90 08/06/19 23:19 98.1 08/06/19 22:18 98.1 08/06/19 21:48 131/83 08/06/19 21:00 Room Air 08/06/19 20:00 100.2 97 18 134/75 (94) 99 08/06/19 17:51 89 131/83 08/06/19 16:00 87 08/06/19 16:00 97.8 89 20 131/83 (99) 100 08/06/19 12:00 103 08/06/19 12:00 96.5 89 20 125/64 (84) 98 Intake and Output 08/06/19 08/07/19 19:00 07:00 Output Total 550 ml Balance -550 ml Output Urine Total 550 ml General Appearance: no acute distress HEENT: normocephalic Respiratory/Chest: chest wall non-tender Cardiovascular: normal peripheral pulses Abdomen: normal bowel sounds Microbiology Date/Time Source Procedure Growth Status 08/06/19 01:30 Rectum Received Laboratory Tests 08/07/19 06:10: White Blood Count 10.7, Red Blood Count 2.81L, Hemoglobin 8.8L, Hematocrit 25.6L , Mean Corpuscular Volume 91#, Mean Corpuscular Hemoglobin 31.5H, Mean Corpuscular Hemoglobin Concent 34.6, Red Cell Distribution Width 15.6H, Platelet Count 217, Mean Platelet Volume 5.3L, Neutrophils (%) (Auto) 72.3, Lymphocytes (%) (Auto) 15.9L, Monocytes (%) (Auto) 9.3, Eosinophils (%) (Auto) 1.7, Basophils (%) (Auto) 0.8, Sodium Level 139, Potassium Level 4.5, Chloride Level 100, Carbon Dioxide Level 24, Anion Gap 15, Blood Urea Nitrogen 33H, Creatinine 8.1#H, Estimat Glomerular Filtration Rate 5.7, Glucose Level 83#, Calcium Level 8.7 Current Medications Medications (Trade) Dose Ordered Sig/Parker Route PRN Reason Start Time Stop Time Status Last Admin Dose Admin Acetaminophen (Tylenol) 650 mg Q6H PRN ORAL Mild Pain/Temp > 100.5 08/06/19 21:45 09/05/19 21:44 08/06/19 21:53 Amlodipine Besylate (Norvasc) 5 mg BID ORAL 08/06/19 09:00 09/05/19 08:59 08/07/19 08:46 Clonidine HCl (Catapres Tab) 0.1 mg QHS ORAL 08/06/19 21:00 11/04/19 20:59 08/06/19 21:48 Dextrose (Dextrose 50%) 25 ml Q30M PRN IV Hypoglycemia 08/06/19 10:15 11/04/19 10:14 Dextrose (Dextrose 50%) 50 ml Q30M PRN IV Hypoglycemia 08/06/19 10:15 11/04/19 10:14 Famotidine (Pepcid) 40 mg DAILY ORAL 08/07/19 09:00 11/05/19 08:59 08/07/19 08:37 Morphine Sulfate (Morphine Sulfate) 1 mg Q3H PRN IVP Severe Pain (Pain Scale 7-10) 08/06/19 08:00 08/13/19 07:59 08/06/19 21:48 Ondansetron HCl (Zofran) 4 mg Q6H PRN IVP Nausea & Vomiting 08/06/19 10:15 09/05/19 10:14 Vitamin B Complex (Vitamin B Complex) 1 tab DAILY ORAL 08/06/19 10:00 11/04/19 09:59 08/07/19 08:39 Duncan Ryan MD Aug 07, 2019 10:41
--- NOTE | 2019-08-07 10:50 | Nephrology Progress Note ---
Assessment/Plan Assessment/Plan: A/P 1. ESRD on hemodialysis. Use HD catheter tomorrow - HD 2 hrs tomorrow then DC and patient can have HD TTS as out patient 2. Right upper extremity AV fistula. Noted to have a 5.6 cm hematoma surrounding the graft/ hemorrhage. The patient has an Cheko bandage for compression. Spoke with Dr. Alfa Serra, Vascular Surgery who placed AV graft. He says not new. Says he informed ER doc OK for DC from ER will remove CHEKO bandage today , monitor and DC in am post HD 3. Hypertension. Adjust medications as deemed appropriate. 4. Febrile- likely from blood transfusion. Monitor for now DC home tomorrow post HD Subjective Date patient seen: Aug 07, 2019 Time patient seen: 10:29 ROS Limited/Unobtainable: No Allergies: Coded Allergies: No Known Allergies (Unverified , 05/31/16) Subjective Patient feels much better Objective Last 24 Hour Vital Signs Date Time Temp Pulse Resp B/P (MAP) Pulse Ox O2 Delivery O2 Flow Rate FiO2 08/07/19 09:00 Room Air 08/07/19 08:46 89 142/85 08/07/19 08:00 98.8 90 18 142/85 (104) 100 08/07/19 08:00 83 08/07/19 04:00 98.4 97 18 139/75 (96) 99 08/07/19 04:00 100 08/07/19 00:00 98.4 97 18 108/60 (76) 99 08/07/19 00:00 90 08/06/19 23:19 98.1 08/06/19 22:18 98.1 08/06/19 21:48 131/83 08/06/19 21:00 Room Air 08/06/19 20:00 100.2 97 18 134/75 (94) 99 08/06/19 17:51 89 131/83 08/06/19 16:00 87 08/06/19 16:00 97.8 89 20 131/83 (99) 100 08/06/19 12:00 103 08/06/19 12:00 96.5 89 20 125/64 (84) 98 Intake and Output 08/06/19 08/07/19 19:00 07:00 Output Total 550 ml Balance -550 ml Output Urine Total 550 ml Laboratory Tests 08/07/19 06:10: White Blood Count 10.7, Red Blood Count 2.81L, Hemoglobin 8.8L, Hematocrit 25.6L , Mean Corpuscular Volume 91#, Mean Corpuscular Hemoglobin 31.5H, Mean Corpuscular Hemoglobin Concent 34.6, Red Cell Distribution Width 15.6H, Platelet Count 217, Mean Platelet Volume 5.3L, Neutrophils (%) (Auto) 72.3, Lymphocytes (%) (Auto) 15.9L, Monocytes (%) (Auto) 9.3, Eosinophils (%) (Auto) 1.7, Basophils (%) (Auto) 0.8, Sodium Level 139, Potassium Level 4.5, Chloride Level 100, Carbon Dioxide Level 24, Anion Gap 15, Blood Urea Nitrogen 33H, Creatinine 8.1#H, Estimat Glomerular Filtration Rate 5.7, Glucose Level 83#, Calcium Level 8.7 Height (Feet): 5 Height (Inches): 2.00 Weight (Pounds): 147 General Appearance: no apparent distress EENT: normal ENT inspection Neck: normal alignment, supple Cardiovascular: normal rate, regular rhythm Respiratory/Chest: lungs clear, normal breath sounds Abdomen: non tender, soft Edema: 2+ Arm (R) Harjeet Escalera MD Aug 07, 2019 10:50
--- NOTE | 2019-08-07 11:30 | NUR ---
NURSE NOTES: Received order from Dr. Escalera, patient is schedule for dialysis tomorrow, August 06, 2019. Secured consent, available at chart. Called [facility] and spoke to karime and he'll call the HD nurse.
[2019-08-07 12:00] VITALS: BP 147/76
--- NOTE | 2019-08-07 12:05 | NUR ---
NURSE NOTES: Dr. Chandra ordered to removed the dressing on right arm. Explained to the patient, verbalized understanding. Compression dressing was removed, left simple dressing on and it's intact, still with bruises on the concerned area but no active bleeding at this time. Instructed on the signs and symptoms to watch out for and notify nurse on duty at once or her attending physician when she's going to be discharge if there's any symptoms noted
[2019-08-07 16:00] VITALS: BP 150/86
--- NOTE | 2019-08-07 18:00 | NUR ---
NURSE NOTES: Patient has a fever, 100.5. Tylenol 650mg was given, iced pack was given. Will continue to monitor.
--- NOTE | 2019-08-07 19:05 | NUR ---
HAND-OFF: Report given to TOMASA Malik. Patient is in stable condition, plan of care endorsed.
[2019-08-07 20:00] VITALS: BP 145/76
[2019-08-08] VITALS: BP 144/76
[2019-08-08 04:00] VITALS: BP 138/67
--- NOTE | 2019-08-08 07:22 | NUR ---
NURSE NOTES: Received report from TOMASA Nicole. Patient in bed resting, no active s/s cardiac, respiratory distress noticed at this time. Patient AOx4, denies pain at this time, per patient, right arm swollen, warm to touch, able to move, cap refill <3 sec. SR with HR 76. Patient on room air. IV on left FA 20G, asymptomatic, patent, intact. Endorsed last night patient was having low grade fever, one dose of Tylenol given. Bed in lowest position, side rails upx3, call light within reach. Will continue to monitor.
[2019-08-08 07:40] LABS: BASOPHILS % (AUTO) 0.5 % (0.0-2.0); EOSINOPHILS % (AUTO) 1.7 % (0.0-3.0); HEMATOCRIT 24.9 % (37.0-47.0); HEMOGLOBIN 8.6 G/DL (12.0-16.0); LYMPHOCYTES % (AUTO) 16.8 % (20.0-45.0); MEAN CORPUSCULAR VOLUME 92 FL (80-99); MONOCYTES % (AUTO) 8.6 % (1.0-10.0); NEUTROPHILS % (AUTO) 72.4 % (45.0-75.0); PLATELET COUNT 235 K/UL (150-450); RED BLOOD COUNT 2.71 M/UL (4.20-5.40); RED CELL DISTRIBUTION WIDTH 15.4 % (11.6-14.8); WHITE BLOOD COUNT 10.1 K/UL (4.8-10.8)
--- NOTE | 2019-08-08 07:51 | NUR ---
NURSE NOTES: Called [facility] Nephrology Tele : [phone] spoke with Shira and informed patient schedule for HD today per Dr. Escalera.
--- NOTE | 2019-08-08 07:58 | Nephrology Progress Note ---
Assessment/Plan Assessment/Plan: A/P 1. ESRD on hemodialysis. Use HD catheter today - HD 2 hrs today then DC and patient can have HD TTS as out patient 2. Right upper extremity AV fistula. Noted to have a 5.6 cm hematoma surrounding the graft/ hemorrhage. The patient has an Cheko bandage for compression removed Spoke with Dr. Alfa Serra, Vascular Surgery who placed AV graft. He says not new. Says he informed ER doc OK for DC from ER Remove CHEKO bandage, monitor and DC post HD 3. Hypertension. Adjust medications as deemed appropriate. 4. Febrile- likely from blood transfusion. Monitor for now, resolved DC home today post HD Subjective Date patient seen: Aug 08, 2019 Time patient seen: 07:56 ROS Limited/Unobtainable: No Allergies: Coded Allergies: No Known Allergies (Unverified , 05/31/16) Subjective Patient pending DC today Objective Last 24 Hour Vital Signs Date Time Temp Pulse Resp B/P (MAP) Pulse Ox O2 Delivery O2 Flow Rate FiO2 08/08/19 04:00 74 08/08/19 04:00 98.9 76 20 138/67 (90) 99 08/08/19 00:00 82 08/08/19 00:00 98.7 81 20 144/76 (98) 99 08/07/19 21:00 Room Air 08/07/19 20:54 150/86 08/07/19 20:00 98.1 111 20 145/76 (99) 99 08/07/19 18:30 99.7 08/07/19 17:55 100.5 08/07/19 17:33 102 150/86 08/07/19 16:00 100.2 98 18 150/86 (107) 99 08/07/19 16:00 102 08/07/19 12:00 99.0 85 19 147/76 (99) 99 08/07/19 12:00 88 08/07/19 09:00 Room Air 08/07/19 08:46 89 142/85 08/07/19 08:00 98.8 90 18 142/85 (104) 100 08/07/19 08:00 83 Intake and Output 08/07/19 08/08/19 19:00 07:00 Intake Total 980 ml Output Total 30 ml Balance 950 ml Intake Oral 980 ml Output Urine Total 30 ml # Voids 1 1 Laboratory Tests 08/08/19 06:32: White Blood Count 10.1, Red Blood Count 2.71L, Hemoglobin 8.6L, Hematocrit 24.9L , Mean Corpuscular Volume 92, Mean Corpuscular Hemoglobin 31.9H, Mean Corpuscular Hemoglobin Concent 34.7, Red Cell Distribution Width 15.4H, Platelet Count 235, Mean Platelet Volume 5.1L, Neutrophils (%) (Auto) 72.4, Lymphocytes (%) (Auto) 16.8L, Monocytes (%) (Auto) 8.6, Eosinophils (%) (Auto) 1.7, Basophils (%) (Auto) 0.5, Sodium Level [Pending], Potassium Level [Pending] , Chloride Level [Pending], Carbon Dioxide Level [Pending], Blood Urea Nitrogen [Pending], Creatinine [Pending], Estimat Glomerular Filtration Rate [Pending], Glucose Level [Pending], Calcium Level [Pending] Height (Feet): 5 Height (Inches): 2.00 Weight (Pounds): 147 General Appearance: no apparent distress, alert EENT: normal ENT inspection Neck: normal alignment, supple Cardiovascular: normal rate, regular rhythm Respiratory/Chest: lungs clear, normal breath sounds Abdomen: non tender, soft Edema: 2+ Leg (L) Harjeet Escalera MD Aug 08, 2019 07:58
[2019-08-08 08:00] VITALS: BP 145/77
--- NOTE | 2019-08-08 08:00 | Discharge Instructions ---
Discharge Instructions Discharge Instructions Services at Discharge: other Diet: renal (80g protein, 2GM) Resume Normal Activity?: Yes Activity: light activity Follow Up Orders Follow up 1-[address] Bañuelos Continue out patient dialysis TTS For Congestive Heart Failure Reminder Report to your physician any weight gain of 5 pounds or more in one week. Harjeet Escalera MD Aug 08, 2019 08:00
[2019-08-08 08:06] LABS: ANION GAP 17 mmol/L (5-15); BLOOD UREA NITROGEN 46 mg/dL (7-18); CALCIUM 8.5 MG/DL (8.5-10.1); CARBON DIOXIDE 20 MMOL/L (21-32); CHLORIDE 101 MMOL/L (98-107); CREATININE 10.5 MG/DL (0.55-1.30); POTASSIUM 5.3 MMOL/L (3.5-5.1); SODIUM 138 MMOL/L (136-145)
[2019-08-08] MEDS: Vitamin B Complex Tab ORAL SCH (08:36)
--- NOTE | 2019-08-08 08:41 | NUR ---
NURSE NOTES: Per Dr. Escalera, discharge patient after HD.
--- NOTE | 2019-08-08 09:25 | General Progress Note ---
Assessment/Plan Problem List: (1) Swelling of upper extremity ICD Codes: M79.89 - Other specified soft tissue disorders SNOMED: 227008091 (2) Syncope ICD Codes: R55 - Syncope and collapse SNOMED: 436044790 (3) Fistula ICD Codes: L98.8 - Other specified disorders of the skin and subcutaneous tissue SNOMED: 511433168 (4) Anemia ICD Codes: D64.9 - Anemia, unspecified SNOMED: 848566205 (5) ESRD (end stage renal disease) on dialysis ICD Codes: N18.6 - End stage renal disease; Z99.2 - Dependence on renal dialysis SNOMED: 046346810 Status: unchanged Assessment/Plan: pt diet pain control cbc bmp am dialysis Subjective Constitutional: Reports: weakness Allergies: Coded Allergies: No Known Allergies (Unverified , 05/31/16) All Systems: reviewed and negative except above Subjective sitting in chair calm Objective Last 24 Hour Vital Signs Date Time Temp Pulse Resp B/P (MAP) Pulse Ox O2 Delivery O2 Flow Rate FiO2 08/08/19 08:29 95 145/77 08/08/19 08:00 98.8 95 20 145/77 (99) 99 08/08/19 04:00 74 08/08/19 04:00 98.9 76 20 138/67 (90) 99 08/08/19 00:00 82 08/08/19 00:00 98.7 81 20 144/76 (98) 99 08/07/19 21:00 Room Air 08/07/19 20:54 150/86 08/07/19 20:00 98.1 111 20 145/76 (99) 99 08/07/19 18:30 99.7 08/07/19 17:55 100.5 08/07/19 17:33 102 150/86 08/07/19 16:00 100.2 98 18 150/86 (107) 99 08/07/19 16:00 102 08/07/19 12:00 99.0 85 19 147/76 (99) 99 08/07/19 12:00 88 Intake and Output 08/07/19 08/08/19 19:00 07:00 Intake Total 980 ml Output Total 30 ml Balance 950 ml Intake Oral 980 ml Output Urine Total 30 ml # Voids 1 1 Laboratory Tests 08/08/19 06:32: White Blood Count 10.1, Red Blood Count 2.71L, Hemoglobin 8.6L, Hematocrit 24.9L , Mean Corpuscular Volume 92, Mean Corpuscular Hemoglobin 31.9H, Mean Corpuscular Hemoglobin Concent 34.7, Red Cell Distribution Width 15.4H, Platelet Count 235, Mean Platelet Volume 5.1L, Neutrophils (%) (Auto) 72.4, Lymphocytes (%) (Auto) 16.8L, Monocytes (%) (Auto) 8.6, Eosinophils (%) (Auto) 1.7, Basophils (%) (Auto) 0.5, Sodium Level 138, Potassium Level 5.3H, Chloride Level 101, Carbon Dioxide Level 20L, Anion Gap 17H, Blood Urea Nitrogen 46H, Creatinine 10.5H, Estimat Glomerular Filtration Rate 4.2, Glucose Level 85, Calcium Level 8.5 Height (Feet): 5 Height (Inches): 2.00 Weight (Pounds): 147 General Appearance: lethargic EENT: normal ENT inspection Neck: normal alignment Cardiovascular: normal peripheral pulses, normal rate, regular rhythm Respiratory/Chest: chest wall non-tender, lungs clear, normal breath sounds Abdomen: normal bowel sounds, non tender, soft Extremities: normal inspection Edema: no edema noted Arm (L), no edema noted Arm (R), no edema noted Leg (L), no edema noted Leg (R), no edema noted Pedal (L), no edema noted Pedal (R), no edema noted Generalized Neurologic: responsive, motor weakness Skin: normal pigmentation, warm/dry Rowdy Wall DO Aug 08, 2019 09:25
--- NOTE | 2019-08-08 10:17 | Pulmonology Progress Note ---
Assessment/Plan Assessment/Plan IMPRESSION: 1. Bleeding AV fistula. 2. Hypertension. 3. ESRD, on dialysis. DISCUSSION: No further bleeding CLinically well Dc planning Duncan Ryan M.D. Subjective Interval Events: None new Constitutional: Reports: no symptoms HEENT: Repors: no symptoms Respiratory: Reports: no symptoms Cardiovascular: Reports: no symptoms Gastrointestinal/Abdominal: Reports: no symptoms Allergies: Coded Allergies: No Known Allergies (Unverified , 05/31/16) Objective Last 24 Hour Vital Signs Date Time Temp Pulse Resp B/P (MAP) Pulse Ox O2 Delivery O2 Flow Rate FiO2 08/08/19 09:00 Room Air 08/08/19 08:29 95 145/77 08/08/19 08:00 100 08/08/19 08:00 98.8 95 20 145/77 (99) 99 08/08/19 04:00 74 08/08/19 04:00 98.9 76 20 138/67 (90) 99 08/08/19 00:00 82 08/08/19 00:00 98.7 81 20 144/76 (98) 99 08/07/19 21:00 Room Air 08/07/19 20:54 150/86 08/07/19 20:00 98.1 111 20 145/76 (99) 99 08/07/19 18:30 99.7 08/07/19 17:55 100.5 08/07/19 17:33 102 150/86 08/07/19 16:00 100.2 98 18 150/86 (107) 99 08/07/19 16:00 102 08/07/19 12:00 99.0 85 19 147/76 (99) 99 08/07/19 12:00 88 Intake and Output 08/07/19 08/08/19 19:00 07:00 Intake Total 980 ml Output Total 30 ml Balance 950 ml Intake Oral 980 ml Output Urine Total 30 ml # Voids 1 1 General Appearance: no acute distress HEENT: normocephalic Respiratory/Chest: chest wall non-tender Cardiovascular: normal peripheral pulses Abdomen: normal bowel sounds Microbiology Date/Time Source Procedure Growth Status 08/06/19 01:30 Nasal Nares MRSA Culture - Final NO METHICILLIN RESISTANT STAPH AUREUS... Complete 08/06/19 01:30 Rectum - Final NO CARBAPENEM-RESISTANT ENTEROBACTERI... Complete 08/06/19 01:30 Rectum VRE Culture - Final NO VANCOMYCIN RESISTANT ENTEROCOCCUS ... Complete Laboratory Tests 08/08/19 06:32: White Blood Count 10.1, Red Blood Count 2.71L, Hemoglobin 8.6L, Hematocrit 24.9L , Mean Corpuscular Volume 92, Mean Corpuscular Hemoglobin 31.9H, Mean Corpuscular Hemoglobin Concent 34.7, Red Cell Distribution Width 15.4H, Platelet Count 235, Mean Platelet Volume 5.1L, Neutrophils (%) (Auto) 72.4, Lymphocytes (%) (Auto) 16.8L, Monocytes (%) (Auto) 8.6, Eosinophils (%) (Auto) 1.7, Basophils (%) (Auto) 0.5, Sodium Level 138, Potassium Level 5.3H, Chloride Level 101, Carbon Dioxide Level 20L, Anion Gap 17H, Blood Urea Nitrogen 46H, Creatinine 10.5H, Estimat Glomerular Filtration Rate 4.2, Glucose Level 85, Calcium Level 8.5 Current Medications Medications (Trade) Dose Ordered Sig/Parker Route PRN Reason Start Time Stop Time Status Last Admin Dose Admin Acetaminophen (Tylenol) 650 mg Q6H PRN ORAL Mild Pain/Temp > 100.5 08/06/19 21:45 09/05/19 21:44 08/07/19 17:58 Amlodipine Besylate (Norvasc) 5 mg BID ORAL 08/06/19 09:00 09/05/19 08:59 08/07/19 17:33 Clonidine HCl (Catapres Tab) 0.1 mg QHS ORAL 08/06/19 21:00 11/04/19 20:59 08/07/19 20:54 Dextrose (Dextrose 50%) 25 ml Q30M PRN IV Hypoglycemia 08/06/19 10:15 11/04/19 10:14 Dextrose (Dextrose 50%) 50 ml Q30M PRN IV Hypoglycemia 08/06/19 10:15 11/04/19 10:14 Famotidine (Pepcid) 40 mg DAILY ORAL 08/07/19 09:00 6/20/20 08:59 08/08/19 08:36 Morphine Sulfate (Morphine Sulfate) 1 mg Q3H PRN IVP Severe Pain (Pain Scale 7-10) 08/06/19 08:00 08/13/19 07:59 08/06/19 21:48 Ondansetron HCl (Zofran) 4 mg Q6H PRN IVP Nausea & Vomiting 08/06/19 10:15 09/05/19 10:14 Vitamin B Complex (Vitamin B Complex) 1 tab DAILY ORAL 08/06/19 10:00 11/04/19 09:59 08/08/19 08:36 Duncan Ryan MD Aug 08, 2019 10:17
--- NOTE | 2019-08-08 10:42 | NUR ---
P.T Note: P.T evaluation completed. Pt received in supine position , alert, pleasant cooperative despite c/o severe on the R upper arm ( AV graft site ). Pt able to perform bed mobility tasks independently despite difficulty due to L upper pain and swelling. Pt able to transfer and ambulate independently and safely w/o AD needed. Pt is functioning independently at baseline therefore skilled P.T not needed at this time. DC P.T services. Thank you for this referral.
--- NOTE | 2019-08-08 11:28 | NUR ---
NURSE NOTES: Dr. Aguayo at the bedside, made aware of scant to moderate amount of bleeding from surgical site on right arm. Per MD, no indication for surgery or infection, apply abdominal binder and slight pressure with tape.
[2019-08-08 12:00] VITALS: BP 151/87
--- NOTE | 2019-08-08 14:13 | NUR ---
NURSE NOTES: Dr. Escalera made aware HD done, BP elevated 175/80, per MD, hydralazine 25mg PO once. Order noted, entered, carried out. Will continue to monitor.
[2019-08-08] MEDS ORDERED: HydrALAZINE 25mg tab ORAL SCH (14:16)
--- NOTE | 2019-08-08 15:00 | NUR ---
NURSE NOTES: Blood pressure rechecked 145/80
--- NOTE | 2019-08-08 15:13 | Consultation ---
History of Present Illness General Date patient seen: Aug 08, 2019 Reason for Hospitalization: General Complaint Present Illness HPI This is a 33-year-old female with multiple medical comorbidities who is a end- stage renal disease on hemodialysis patient that recently had a right upper extremity fistula placement at [facility] by Dr. rogers who presented to [facility] for evaluation of swelling and tenderness in her right upper extremity. She states that suddenly she felt the acute pain in her right upper extremity with some edema. she states this is been ongoing for some time since creation of the fistula and she is seeing her surgeon as an outpatient who gave her reassurance. She states fistula was created 3 weeks ago and on outpatient evaluation was told she has a hematoma and a fluid collection which will resolve in discharge but she did not feel comfortable and came [facility] for evaluation. She was planned for discharge but felt she would like a surgeon to see her prior to discharge. I was called to evaluate and assist with care. Patient seen, patient evaluate, chart reviewed Allergies: Coded Allergies: No Known Allergies (Unverified , 05/31/16) Medication History Scheduled Amlodipine Besylate* (Amlodipine Besylate*), 5 MG ORAL BID, (Reported) Clonidine Hcl* (Catapres*), 0.1 MG ORAL HS, (Reported) Vit B Cmplx 3/Fa/Vit C/Biotin (Stefanie-Lani Rx Tablet), 1 EACH PO DAILY, (Reported) Scheduled PRN Carvedilol (Coreg), 12.5 MG ORAL EVERY 12 HOURS PRN for For High Blood Pressure, (Reported) Discontinued Medications Cyclobenzaprine Hcl* (Flexeril*), 10 MG ORAL THREE TIMES A DAY Discontinued Reason: Therapy completed Ibuprofen* (Motrin*), 600 MG ORAL THREE TIMES A DAY Discontinued Reason: Therapy completed No Known Medications* (NKM - No Known Medications*), 0 ., (Reported) Discontinued Reason: Medication dose changed Patient History History Provided By: Patient, Medical Record, PMD Healthcare decision maker Resuscitation status Full Code Advanced Directive on File Past Medical/Surgical History Past Medical/Surgical History: (1) Headache (2) Syncope (3) Anemia (4) Fistula (5) ESRD (end stage renal disease) on dialysis (6) Swelling of upper extremity Review of Systems Review of Symptoms General ROS: no weight loss or fever Psychological ROS: no depression or mood changes, no memory loss Ophthalmic ROS: no visual changes or eye irritation ENT ROS: no nasal congestion, hearing loss, dizziness Allergy and Immunology ROS: no allergic symptoms or urticaria Hematological and Lymphatic ROS: no swollen glands, unusual bleeding or bruising Endocrine ROS: no polyuria, polydipsia, weight changes, temperature intolerance Respiratory ROS: no cough, shortness of breath, or wheezing Cardiovascular ROS: no chest pain or dyspnea on exertion Gastrointestinal ROS: denies abdominal pain, bright red blood in stool. Musculoskeletal ROS: rue pain Neurological ROS: no TIA or stroke symptoms Dermatological ROS: no new or changing skin lesions, rashes or pruritis Physical Exam Physical Exam General appearance: alert, cooperative, no distress, appears stated age Head: Normocephalic, without obvious abnormality, atraumatic Eyes: conjunctivae/corneas clear. PERRL, EOM's intact. Fundi benign Throat: Lips, mucosa, and tongue normal. Teeth and gums normal Neck: supple, symmetrical, trachea midline, no adenopathy, thyroid: not enlarged, symmetric, no tenderness/mass/nodules, no carotid bruit and no JVD Lungs: clear to auscultation bilaterally Heart: regular rate and rhythm, S1, S2 normal, no murmur, click, rub or gallop Abdomen: soft, non-tender. Bowel sounds normal. No masses, no organomegaly Extremities: extremities right upper extremity with swelling around the bicep area identified with fluid collection likely hematoma. No signs of active infection. No purulent drainage. No drainage otherwise. The surgical incisions are noted both in the right axilla as well the right bicep. The right axilla stable the right bicep is with edema and mild 1 mm dehiscence around the midportion of the incision but is otherwise intact. Pulses: 2+ and symmetric Skin: Skin color, texture, turgor normal. No rashes or lesions Neurologic: Grossly normal Last 24 Hour Vital Signs Date Time Temp Pulse Resp B/P (MAP) Pulse Ox O2 Delivery O2 Flow Rate FiO2 08/08/19 14:28 175/80 08/08/19 12:00 98.2 100 20 151/87 (108) 99 08/08/19 12:00 97 08/08/19 09:00 Room Air 08/08/19 08:29 95 145/77 08/08/19 08:00 100 08/08/19 08:00 98.8 95 20 145/77 (99) 99 08/08/19 04:00 74 08/08/19 04:00 98.9 76 20 138/67 (90) 99 08/08/19 00:00 82 08/08/19 00:00 98.7 81 20 144/76 (98) 99 08/07/19 21:00 Room Air 08/07/19 20:54 150/86 08/07/19 20:00 98.1 111 20 145/76 (99) 99 08/07/19 18:30 99.7 08/07/19 17:55 100.5 08/07/19 17:33 102 150/86 08/07/19 16:00 100.2 98 18 150/86 (107) 99 08/07/19 16:00 102 Intake and Output 08/07/19 08/08/19 19:00 07:00 Intake Total 980 ml Output Total 30 ml Balance 950 ml Intake Oral 980 ml Output Urine Total 30 ml # Voids 1 1 Laboratory Tests Test 08/08/19 06:32 White Blood Count 10.1 K/UL (4.8-10.8) Red Blood Count 2.71 M/UL (4.20-5.40) L Hemoglobin 8.6 G/DL (12.0-16.0) L Hematocrit 24.9 % (37.0-47.0) L Mean Corpuscular Volume 92 FL (80-99) Mean Corpuscular Hemoglobin 31.9 PG (27.0-31.0) H Mean Corpuscular Hemoglobin Concent 34.7 G/DL (32.0-36.0) Red Cell Distribution Width 15.4 % (11.6-14.8) H Platelet Count 235 K/UL (150-450) Mean Platelet Volume 5.1 FL (6.5-10.1) L Neutrophils (%) (Auto) 72.4 % (45.0-75.0) Lymphocytes (%) (Auto) 16.8 % (20.0-45.0) L Monocytes (%) (Auto) 8.6 % (1.0-10.0) Eosinophils (%) (Auto) 1.7 % (0.0-3.0) Basophils (%) (Auto) 0.5 % (0.0-2.0) Sodium Level 138 MMOL/L (136-145) Potassium Level 5.3 MMOL/L (3.5-5.1) H Chloride Level 101 MMOL/L (98-107) Carbon Dioxide Level 20 MMOL/L (21-32) L Anion Gap 17 mmol/L (5-15) H Blood Urea Nitrogen 46 mg/dL (7-18) H Creatinine 10.5 MG/DL (0.55-1.30) H Estimat Glomerular Filtration Rate 4.2 mL/min (>60) Glucose Level 85 MG/DL (74-106) Calcium Level 8.5 MG/DL (8.5-10.1) Height (Feet): 5 Height (Inches): 2.00 Weight (Pounds): 147 Medications Current Medications Medications (Trade) Dose Ordered Sig/Parker Route PRN Reason Start Time Stop Time Status Last Admin Dose Admin Acetaminophen (Tylenol) 650 mg Q6H PRN ORAL Mild Pain/Temp > 100.5 08/06/19 21:45 09/05/19 21:44 08/07/19 17:58 Amlodipine Besylate (Norvasc) 5 mg BID ORAL 08/06/19 09:00 09/05/19 08:59 08/07/19 17:33 Clonidine HCl (Catapres Tab) 0.1 mg QHS ORAL 08/06/19 21:00 11/04/19 20:59 08/07/19 20:54 Dextrose (Dextrose 50%) 25 ml Q30M PRN IV Hypoglycemia 08/06/19 10:15 11/04/19 10:14 Dextrose (Dextrose 50%) 50 ml Q30M PRN IV Hypoglycemia 08/06/19 10:15 11/04/19 10:14 Famotidine (Pepcid) 40 mg DAILY ORAL 08/07/19 09:00 11/05/19 08:59 08/08/19 08:36 Hydralazine HCl (Apresoline) 25 mg ONCE ORAL 08/08/19 14:16 08/08/19 16:00 08/08/19 14:28 Morphine Sulfate (Morphine Sulfate) 1 mg Q3H PRN IVP Severe Pain (Pain Scale 7-10) 08/06/19 08:00 08/13/19 07:59 08/06/19 21:48 Ondansetron HCl (Zofran) 4 mg Q6H PRN IVP Nausea & Vomiting 08/06/19 10:15 09/05/19 10:14 Vitamin B Complex (Vitamin B Complex) 1 tab DAILY ORAL 08/06/19 10:00 11/04/19 09:59 08/08/19 08:36 Assessment/Plan Problem List: (1) Swelling of upper extremity Assessment & Plan: extremities right upper extremity with swelling around the bicep area identified with fluid collection likely hematoma. No signs of active infection. No purulent drainage. No drainage otherwise. The surgical incisions are noted both in the right axilla as well the right bicep. The right axilla stable the right bicep is with edema and mild 1 mm dehiscence around the midportion of the incision but is otherwise intact. no signs of active infection labs noted no leukocytosis. no fevers cont receiving HD via left chest tunneled cath keep right arm elevated okay for warm compress f/u with primary vascular surgeon upon d/c okay to d/c thank you ICD Codes: M79.89 - Other specified soft tissue disorders SNOMED: [id number] Chad Aguayo Aug 08, 2019 15:13
--- NOTE | 2019-08-08 15:48 | NUR ---
CASE MANAGEMENT:REVIEW 33 YR OLD FEMALE [facility]IB[facility] CC: AV SHUNT BLEEDING AND HYPOTENSION PMH: ESRD ON HD SI: SYNCOPE. HYPOTENSION. ANEMIA 98.4 114 18 99/58 98% ON NON REBREATHER @ 15L H/H-8.5/26.0 IS: WEANED TO 2L/NC IV DILAUDID X2 500CC NS BOLUS CT RUE TRANSFUSE 2 UNITS PRBC'S : TO TELEMETRY 08/08/19 DISCHARGE HOME AFTER DIALYSIS
[2019-08-08 16:00] VITALS: BP 145/83
--- NOTE | 2019-08-08 16:00 | NUR ---
NURSE NOTES: Patient discharged to home per Dr. Escalera. Patient discharged with all belonging is a stable condition. Patient educated regarding medication and care for surgical site. HD done 2L out, without distress, tolerated well. On right arm, swollen, tender to touch, scant amount of blood. radio repairer removed and returned to central services tech. IV removed, ID band removed and placed in shredder.
--- NOTE | 2019-08-09 10:51 | Discharge Summary ---
Discharge Summary Discharge Summary _ DATE OF ADMISSION: 08/06/2019 DATE OF DISCHARGE: 08/08/2019 DISCHARGED BY: Dr. Wall REASON FOR ADMISSION: 33 years old female with past medical history of end-stage renal disease, on hemodialysis, hypertension, anemia, presented for evaluation of AV fistula bleeding along with arm pain and swelling. Patient reported a new AV fistula was placed to the right upper extremity at [facility] several weeks ago. Patient was seen in emergency department last week . At that time ultrasound did not show any evidence of DVT, abscess or other significant pathology except seroma. Patient reported syncopal episode during dialysis session prior to coming to ER , while receiving hemodialysis. Patient was resting at home when she had a sudden pain and swelling in the right upper extremity. Pain reported as 10 out of 10, nonradiating . Patient also reported short episode of oozing, controlled by pressure. No current bleeding upon presentation to emergency department. Patient was able to move upper extremity though limited due to severe pain. No pain in the hand , wrist, or elbow . No reported trauma. Upon evaluation patient was tachycardic with heart rate 114 and required supplemental oxygen. Laboratory work-up revealed no leukocytosis, hemoglobin 8.5 ,,hematocrit 26. Platelet count 273. Potassium 3.0. BUN 14, creatinine 3.8, consistent with known history of end-stage renal disease. EKG revealed sinus tachycardia no acute ischemic changes. CT of the right upper extremity revealed patent right upper extremity AV graft. 5.6 cm hematoma surrounding the distal graft with suspected active hemorrhage. Nonocclusive thrombus in the right axillary vein near the anastomosis. Patient's vascular surgeon from [facility] was contacted and recommended compression bandage. He did not believe it was an acute issue. No emergent need for vascular surgery at this time. Patient was noted to to be hypotensive in ED. Patient received a small IV fluid bolus with improvement in blood pressure and heart rate. Patient subsequently was admitted for further management. CONSULTANTS: pulmonary Dr. Ryan chief reservoir engineering Dr.De Cason surgery Dr. Aguayo [facility]SE: Patient admitted. Residential Real Estate Agent followed. Cheko bandage was placed for compression. No further bleeding. Residential Real Estate Agent discussed with patient's vascular physician who placed AV graft , patient's condition. According to the vascular surgeon there was not a new issue . Patient received hemodialysis Monday 08/07 . Hemoglobin and hematocrit were closely monitored with goal to keep hemoglobin above 7 . Patient received 2 units of packed red blood cells . Prior to discharge hemoglobin 8.6 , hematocrit 24.9. Blood pressure improved after blood transfusion and was managed with clonidine and calcium channel mavis. Prior to discharge blood pressure 145/83. GI prophylaxis provided. Sequential compression stockings provided for mechanical prophylaxis of DVT. Surgeon seen and evaluated patient for swelling of the upper extremity . Patient had hematoma and evidence of acute hemorrhage on CT scan. Surgical incision noted in the right axilla and right bicep. Right axilla incision remained stable. Right bicep with edema and 1 mm dehiscence around the midportion of the incision , but otherwise intact. No signs of active infection. No purulent drainage . No leukocytosis. Surgeon recommended continue hemodialysis via left chest tunneled catheter. Keep right arm elevated. Continue warm compresses . Patient to follow-up with a primary vascular surgeon upon discharge. Pain management was addressed as needed. Fall precaution maintained . Supportive care provided. Cheko bandage was removed . prior to discharge. No oozing, no bleeding. Patient clinically stabilized and was ready for discharge. FINAL DIAGNOSES: End-stage renal disease , on hemodialysis Right upper extremity AV fistula graft bleeding with surrounding hematoma Hypertension Syncopal episode Symptomatic anemia DISCHARGE MEDICATIONS: See Medication Reconciliation list. DISCHARGE INSTRUCTIONS: Patient was discharged home. Follow-up with outpatient hemodialysis as scheduled. Follow-up with vascular surgeon. Patient to follow-up with a primary care provider in 1 week. I have been assigned to dictate discharge summary for this account. I was not involved in the patient's managemen was discharged home. Follow-up with a primary care provider Sakina Alcaraz NP Aug 09, 2019 10:51
--- NOTE | 2019-08-09 16:04 | NUR ---
*-*DISCHARGE PLANNED*-* PATIENT DISCHARGED HOME
== END 2019-08-08 16:45 | disposition home or self-care (01) | DRG 314 ==
LOC: EDBD 22:26 → EMR 22:34 → 2E 08-06 01:14 → EDBEDREQ 08-06 01:29
PROC: 30233N1 Transfusion of Nonautologous Red Blood Cells into Peripheral Vein, Percutaneous Approach (ICD-10-PCS; principal; 2019-08-08)
DX: T82.838A Hemorrhage due to vascular prosthetic devices, implants and grafts, initial encounter (principal); N18.6 End stage renal disease; I12.0 Hypertensive chronic kidney disease with stage 5 chronic kidney disease or end stage renal disease; Z99.2 Dependence on renal dialysis; R55 Syncope and collapse
CPT/HCPCS: 36415; 80048; 85025; 85610; 85730; 86850; 86900; 86901; 86920; 87040; 87081; 93005; 96374; 96375; 99285; J2405; J8499